=== PATIENT | male | born 1995 | race Asian ===

== ENCOUNTER 2025-03-01 06:22 | Outpatient (REF) | payer OTHER, SELFPAY ==
--- NOTE | ~2025-03-01 | US_ITS ---
EXAMINATION: US ABDOMEN COMPLETE CLINICAL INFORMATION: Epigastric pain. Right upper quadrant abdomen.. COMPARISON: None available. TECHNIQUE: Real-time ultrasound abdomen using grayscale technique. FINDINGS: PANCREAS: No peripancreatic fluid collections. ABDOMINAL AORTA: The proximal, mid, and distal segments are normal in caliber. INFERIOR VENA CAVA: Visualized portions are normal. LIVER: Liver measures 14 cm. Increased echotexture. No nodular surface. No solid or cystic lesion. No intrahepatic biliary ductal dilatation. GALLBLADDER: Fluid-filled nondistended. No pericholecystic fluid collection or gallbladder wall thickening. COMMON BILE DUCT 3 mm. RIGHT KIDNEY: 12 cm. Normal echotexture. Normal renal cortical thickness. No hydronephrosis. No solid or cystic lesion.. LEFT KIDNEY: 11 cm. Normal echotexture. Normal renal cortical thickness. No hydronephrosis. No solid or cystic lesion. SPLEEN: 10 cm. No solid or cystic lesion.. FREE FLUID: None. US/US abdomen complete IMPRESSION: Hepatic steatosis. No cholelithiasis or choledocholithiasis. No hydronephrosis. No ascites. Electronically signed by: Fady Murphy MD 03/01/2025 09:56 AM EDT
--- OUTSIDE RECORDS SUMMARY | 2025-03-01 06:24 | XMS_ITS | Clinical Summary ---
Author Organization 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 Not on moisés e 01/13/2023 Are you concerned about learning? Not on file 01/13/2023 No 01/13/2023 No 01/13/2023 Digital Access Answer Date Recorded No 01/13/2023 No 01/13/2023 Reliable internet access at home? Not on file 01/13/2023 Device with a working camera? Not on file Intimate Partner Violence Answer Date R ecorded Are you denied basic needs s uch as food, clothing, or medical care? No 01/13/2023 In the past 12 months have y ou been in a relationship with a person who hurts, threatens, or tries to control you? No 01/13/2023 Are you denied basic needs s uch as food, clothing, or medical care? No 01/13/2023 In the past 12 months have y ou been in a relationship with a person who hurts, threatens, or tries to control you? No 01/13/2023 Sex and Gender Information Value Date Recorded Sex Assigned at Male 01/14/2023 1:10 AM EDT Legal Sex Male 2:14 PM EDT Gender Identity Male 01/14/2023 1:10 AM EDT Sexual Orientation Straight 01/14/2023 1: 10 AM EDT Last Filed Vital Signs Vital Sign Reading Time Taken Comments Blood Pressure 117/78 01/13/2023 6:30 PM EDT Pulse 80 01/13/2023 6:30 PM EDT Temperature 36.8 C (98.2 F) 01/13/2023 6:30 PM EDT Respiratory Rate 16 01/13/2023 6:30 PM EDT Oxygen Saturation 99% 01/13/2023 6:30 PM EDT Inhaled Oxygen Concentration - - Weight 83.9 kg (185 lb) 01/13/2023 2:21 PM EDT Height - - Body Mass Index - - Plan of Treatment Health Maintenance Due Date Last Done Comments Adult Td,Tdap Booster 1997 DEPRESSION SCREENING 2009 HEPATITIS C SCREENING 10/20/2015 HIV ONE-TIME SCREENING (18-6 5 YEARS) 10/20/2015 INFLUENZA VACCINE (#1) 2024 COVID-19 VACCINE (2024-2 6 season) 2025 SMOKING STATUS SCREENING (On ce After 26 Yrs) Completed 01/13/2023 HEPATITIS A VACCINES Aged Out No long er eligible based on patient's age to complete this topic HIB VACCINES Aged Out No longer eligi ble based on patient's age to complete this topic MENINGOCOCCAL VACCINES (ACWY) Aged Out No longer eligible based on patient's age to complete this topic MENINGOCOCCAL VACCINES (B) Aged Out N o longer eligible based on patient's age to complete this topic PNEUMOCOCCAL VACCINES (0-49 years) Aged Out No longer eligible based on patient's age to complete this topic Medical Devices Not on file Insurance [employer] Care Teams Finishing And Shipping Supervisor Relationship Specialty Start Date End Date Pcp, Unknown PCP - General 01/13/23 Additional Source Comments The information contained in this document represents components of the legal health record. It is not the complete legal health record.[facility]
== END 2025-03-01 06:23 | disposition home or self-care (01) ==
LOC: HO.UMASIMG 06:22
PROVIDERS: Visit Provider Emergency Medicine
DX: R10.13 Epigastric pain (principal)
CPT/HCPCS: 76700

== ENCOUNTER → 2025-03-01 09:15 | Outpatient (BNV) | payer OTHER, SELFPAY | PROVIDERS: Visit Provider Radiology Diagnostic Radiology | DX: K76.0 Fatty (change of) liver, not elsewhere classified (principal) | CPT/HCPCS: 76700 ==